=== PATIENT | male | born 2000 | race African-American/Black ===

== ENCOUNTER 2018-03-04 11:15 | Emergency (ER) | payer MEDICAID, OTHER ==
[2018-03-04] MEDS ORDERED: ACETAMINOPHEN 325 MG TABLET PO ONE (11:49)
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
[2018-03-04 13:01] VITALS: BP 128/94
== END 2018-03-04 13:00 | disposition home or self-care (01) ==
LOC: ER 11:15
DX: S09.90XA Unspecified injury of head, initial encounter (principal); Y04.2XXA Assault by strike against or bumped into by another person, initial encounter; R51 Headache; R04.2 Hemoptysis
CPT/HCPCS: 70450; 70486; 99284

== ENCOUNTER 2019-07-27 16:59 | Emergency (ER) | payer MEDICAID ==
[2019-07-27] MEDS ORDERED: NORMAL SALINE 1000 ML 1,000 ML IV ONE (18:21)
--- NOTE | 2019-07-27 18:22 | ER Document Report ---
ED Medical Screen (RME) - General Chief Complaint: Syncope Stated Complaint: SYNCOPE Time Seen by Provider: 07/27/19 18:10 Notes: Patient is a 19-year-old male who presents emergency department after 3 syncopal episodes. His first 1 was last night. He then had 2 this afternoon. He was at work when he had the once today. Patient states that he has felt feverish for the past week or so. Patient states that he has felt congested. Nausea, vomiting, or diarrhea. Exam: Tachycardic. S1, S2. Clear breath sounds. I have greeted and performed a rapid initial assessment of this patient. A comprehensive ED assessment and evaluation of the patient, analysis of test results and completion of medical decision making process will be conducted by an additional ED providers. TRAVEL OUTSIDE OF THE [place] IN LAST 30 DAYS: No - Related Data Allergies/Adverse Reactions: No Known Allergies Allergy (Unverified 07/27/19 18:14) Past Medical History - Social History Chew tobacco use (# tins/day): No Drug Abuse: None Renal/ Medical History: Denies: Hx Peritoneal Dialysis Physical Exam - Vital signs Vitals: Temp Pulse Resp BP Pulse Ox 99.1 F 106 H 18 102/85 97 07/27/19 17:28 07/27/19 17:28 07/27/19 17:28 07/27/19 17:28 07/27/19 17:28 Course - Vital Signs Vital signs: Temp Pulse Resp BP Pulse Ox 99.1 F 106 H 18 102/85 97 07/27/19 17:28 07/27/19 17:28 07/27/19 17:28 07/27/19 17:28 07/27/19 17:28
--- NOTE | 2019-07-27 19:05 | RADIOLOGY REPORT (SQ) ---
EXAM DESCRIPTION: KUB/ABDOMEN (SINGLE VIEW) COMPLETED DATE/TIME: 07/27/2019 6:36 pm REASON FOR STUDY: constipation;syncope COMPARISON: None. NUMBER OF VIEWS: One view. TECHNIQUE: Supine radiographic image of the abdomen acquired. LIMITATIONS: None. FINDINGS: BOWEL GAS PATTERN: Scattered non-dilated gas-filled small bowel loops. CALCIFICATIONS: No suspicious calcifications. SOFT TISSUES: No gross mass or suggestion of organomegaly. HARDWARE: None in the abdomen.. BONES: No acute fracture. No worrisome bone lesions. OTHER: No other significant finding. IMPRESSION: NON-SPECIFIC BOWEL GAS PATTERN. TECHNICAL DOCUMENTATION: JOB ID: [id number] [place]-72 2010 [employer]- All Rights Reserved Reading location - IP/workstation name: [employer]
--- NOTE | 2019-07-27 19:06 | RADIOLOGY REPORT (SQ) ---
EXAM DESCRIPTION: CHEST 2 VIEWS COMPLETED DATE/TIME: 07/27/2019 6:36 pm REASON FOR STUDY: fever COMPARISON: None. EXAM PARAMETERS: NUMBER OF VIEWS: two views TECHNIQUE: Digital Frontal and Lateral radiographic views of the chest acquired. RADIATION DOSE: NA LIMITATIONS: none FINDINGS: LUNGS AND PLEURA: No opacities, masses or pneumothorax. No pleural effusion. MEDIASTINUM AND HILAR STRUCTURES: No masses or contour abnormalities. HEART AND VASCULAR STRUCTURES: Heart normal size. No evidence for failure. BONES: No acute findings. HARDWARE: None in the chest. OTHER: No other significant finding. IMPRESSION: NO ACUTE RADIOGRAPHIC FINDING IN THE CHEST. TECHNICAL DOCUMENTATION: JOB ID: [id number] [place]-72 2010 [employer]- All Rights Reserved Reading location - IP/workstation name: [email or web address]
[2019-07-27 20:06] LABS: ABSOLUTE LYMPHOCYTES (AUTO) 0.8 10^3/uL (0.5-4.7); ABSOLUTE MONOCYTES (AUTO) 0.5 10^3/uL (0.1-1.4); BASOPHILS % (AUTO) 0.6 % (0-2); EOSINOPHILS % (AUTO) 0.3 % (0-6); HEMATOCRIT 45.6 % (37.9-51.0); HEMOGLOBIN 15.4 g/dL (13.5-17.0); LYMPHOCYTES % (AUTO) 12.9 % (13-45); MEAN CORPUSCULAR HEMOGLOBIN 28.7 pg (27.0-33.4); MEAN CORPUSCULAR HGB CONC 33.8 g/dL (32.0-36.0); MEAN CORPUSCULAR VOLUME 85 fl (80-97); MONOCYTES % (AUTO) 7.2 % (3-13); PLATELET COUNT 196 10^3/uL (150-450); RED BLOOD COUNT 5.37 10^6/uL (4.35-5.55); RED CELL DISTRIBUTION WIDTH 12.7 % (11.5-14.0); TOTAL CELLS COUNTED % (AUTO) 100 %; WHITE BLOOD COUNT 6.3 10^3/uL (4.0-10.5)
[2019-07-27 20:11] LABS: APPEARANCE,URINE SLIGHTLY-CLOUDY; BILIRUBIN,URINE NEGATIVE (NEGATIVE); COLOR,URINE YELLOW; GLUCOSE, URINE NEGATIVE (NEGATIVE); KETONES,URINE 20 mg/dL (NEGATIVE); LEUKOCYTE ESTERASE,URINE NEGATIVE (NEGATIVE); NITRITE,URINE NEGATIVE (NEGATIVE); PROTEIN,URINE NEGATIVE (NEGATIVE); URINE SPECIFIC GRAVITY 1.015; UROBILINOGEN,URINE NEGATIVE mg/dL (<2.0)
[2019-07-27 20:23] LABS: ALBUMIN 4.7 g/dL (3.5-5.0); ALKALINE PHOSPHATASE 47 U/L (38-126); ANION GAP 13 (5-19); ASPARTATE AMINO TRANSFERASE 27 U/L (17-59); BILIRUBIN,DIRECT 0.3 mg/dL (0.0-0.4); BILIRUBIN,TOTAL 0.5 mg/dL (0.2-1.3); BLOOD UREA NITROGEN 12 mg/dL (7-20); CALCIUM 9.4 mg/dL (8.4-10.2); CARBON DIOXIDE 28 mmol/L (22-30); CHLORIDE 97 mmol/L (98-107); GLUCOSE 95 mg/dL (75-110); POTASSIUM 4.4 mmol/L (3.6-5.0); TOTAL PROTEIN 8.4 g/dL (6.3-8.2)
[2019-07-27 20:31] LABS: A TYPE INFLUENZA AG NEGATIVE (NEGATIVE); B INFLUENZA AG NEGATIVE (NEGATIVE)
--- NOTE | 2019-07-27 23:40 | ER Document Report ---
ED General - General Chief Complaint: Syncope Stated Complaint: SYNCOPE Time Seen by Provider: 07/27/19 18:10 Primary Care Provider: DARRION DYER MD [ACTIVE STAFF] - 07/30/19 Notes: Patient is a 19-year-old male that comes emergency department for chief complaint of weakness, cough, lack of appetite, and 3 different episodes where he felt lightheaded like he might pass out. Symptoms been going on for the past 2 days. He states once yesterday he felt lightheaded briefly, on 2 separate occasions today he felt lightheaded. He states he simply sits down, closes his eyes, and then the dizziness resolves. He denies chest pain, difficulty breathing, passing out. He states he coughed up some yellowish sputum earlier. He states he frequently feels flushed but he has not had any recorded fevers. He states he feels hungry. He denies abdominal pain, vomiting, diarrhea, sore throat, headache. He takes no daily medications, denies any past medical history. TRAVEL OUTSIDE OF THE [place] IN LAST 30 DAYS: No - Related Data Allergies/Adverse Reactions: No Known Allergies Allergy (Unverified 07/27/19 18:14) Past Medical History - Social History Smoking Status: Current Some Day Smoker Chew tobacco use (# tins/day): No Drug Abuse: None Family History: Reviewed & Not Pertinent Patient has suicidal ideation: No Patient has homicidal ideation: No Renal/ Medical History: Denies: Hx Peritoneal Dialysis Physical Exam - Vital signs Vitals: Temp Pulse Resp BP Pulse Ox 99.1 F 106 H 18 102/85 97 07/27/19 17:28 07/27/19 17:28 07/27/19 17:28 07/27/19 17:28 07/27/19 17:28 - Notes Notes: GENERAL: Alert, interacts well. No acute distress. HEAD: Normocephalic, atraumatic. EYES: Pupils equal, round, and reactive to light. Extraocular movements intact. ENT: Oral mucosa dry, tongue midline. Oropharynx unremarkable. Airway patent. Nares patent, no nasal septal hematoma, TM's intact. NECK: Full range of motion. Supple. Trachea midline. LUNGS: Clear to auscultation bilaterally, no wheezes, rales, or rhonchi. No respiratory distress. Occasional mild cough HEART: Regular rate and rhythm. No murmur ABDOMEN: Soft, non-tender. Non-distended. EXTREMITIES: Moves all 4 extremities spontaneously. No edema, normal radial and dorsalis pedis pulses bilaterally. No cyanosis. BACK: no cervical, thoracic, lumbar midline tenderness. No saddle anesthesia, normal distal neurovascular exam. Moves all extremities in full range of motion. NEUROLOGICAL: Alert and oriented x3. Normal speech. Cranial nerves II through XII grossly intact. PSYCH: Normal affect, normal mood. SKIN: Warm, dry, normal turgor. No rashes or lesions noted. Course - Re-evaluation Re-evalutation: Patient has had lightheadedness but he has not had any syncopal episodes. He has not had any chest pain, he has no complaints on my evaluation other than feeling hungry and weak. He has dry mucous membranes, states he has not been eating anything for the past 2 days. He is mildly tachycardic. Giving IV fluids. CBC unremarkable, chemistry shows creatinine of 1.42 but otherwise unremarkable, urinalysis shows some ketones. X-rays from triage reviewed and unremarkable. Strep and mono from triage reviewed and unremarkable as well. Patient afebrile on my exam with an occasional cough. Unremarkable abdomen and oropharyngeal exam. No nuchal rigidity or headache. No current complaints after IV fluids. EKG is somewhat strange with possible J-point elevation versus ST elevation. Isolated T wave inversion. Does not indicate Brugada. I did discuss with Dr. Norton. He recommended repeat. This was repeated and essentially unchanged. Because patient did not have syncope, does not have chest pain, and has no current symptoms recommendation is for patient to follow-up close with cardiology and return for any concerning symptoms which I discussed at length. Patient states appreciation and agreement. Stable at time of discharge. - Vital Signs Vital signs: Temp Pulse Resp BP Pulse Ox 98.9 F 76 13 122/85 100 07/28/19 01:58 07/28/19 01:58 07/28/19 01:58 07/28/19 01:58 07/28/19 01:58 - Laboratory Result Diagrams: 07/27/19 19:55 07/27/19 19:55 Laboratory results interpreted by me: 07/27/19 07/27/19 07/27/19 19:55 19:55 19:55 Lymph % (Auto) 12.9 L Seg Neutrophils % 79.0 H Chloride 97 L Creatinine 1.42 H Total Protein 8.4 H Urine Ketones 20 H Urine Blood SMALL H - Diagnostic Test Radiology results interpreted by me: EKG shows sinus rhythm at a rate of 70, T wave inversion in lead III but not adjacent to this, probable J-point elevation in the anterior leads with some ST elevations. QTC of 402, NH interval of 164 Discharge - Discharge Clinical Impression: Dizziness, Cough, Weakness Condition: Stable Disposition: HOME, SELF-CARE Additional Instructions: You have been treated for dehydration tonight. Your chest x-ray does not show pneumonia, your remaining tests are reassuring. Your overall symptoms are most likely viral, I recommend rest, improved hydration, better eating, and symptoms should simply resolve. Your EKG is not normal and I recommend close follow-up with the resource program teacher referral, call to set up your first appointment for additional evaluation. Your kidney functioning will also need to be rechecked. Return if you worsen including passing out, chest pain, spiking fevers, vomiting, difficulty breathing, or any other concerning or worsening symptoms. Forms: Return to Work Referrals: DARRION DYER MD [ACTIVE STAFF] - 07/30/19
[2019-07-28 02:00] VITALS: BP 122/85
--- NOTE | 2019-07-28 08:26 | EKG REPORT ---
SEVERITY:- ABNORMAL ECG - SINUS ARRHYTHMIA, RATE 61-87 CONSIDER LEFT VENTRICULAR HYPERTROPHY BORDERLINE T ABNORMALITIES, INFERIOR LEADS ANTERIOR ST ELEVATION, PROBABLY DUE TO LVH : Confirmed by: Gabe Harding MD 28-Jul-2019 08:25:50
--- NOTE | 2019-07-28 08:26 | EKG REPORT ---
SEVERITY:- ABNORMAL ECG - SINUS RHYTHM NONSPECIFIC T ABNORMALITIES, INFERIOR LEADS : Confirmed by: Gabe Harding MD 28-Jul-2019 08:25:31
== END 2019-07-28 01:58 | disposition home or self-care (01) ==
LOC: ER 16:59
DX: R55 Syncope and collapse (principal); R05 Cough; R53.1 Weakness; R63.0 Anorexia; R42 Dizziness and giddiness; F17.200 Nicotine dependence, unspecified, uncomplicated
CPT/HCPCS: 93005; 99284; 96360; 96361; 36415; 87070; 87880; 85025; 80053; 81001; 87804; 71046; 74018; 93010; J7030